=== PATIENT | female | born 1995 | race Caucasian/White ===

== ENCOUNTER → 2024-03-10 08:45 | Outpatient (CLI) | payer BC, SELFPAY ==
[2024-03-10 09:46] LABS: Influenza A - CEPHEID Flu A NEGATIVE (NEGATIVE); Influenza B - CEPHEID Flu B NEGATIVE (NEGATIVE); Respiratory Syncytial Virus Negative (Negative)
[2024-03-10 09:47] LABS: COVID-19 CEPHEID 4-PLEX PCR POSITIVE (Negative)
== END ==
PROVIDERS: Visit Provider Nurse Practitioner Family
DX: J02.9 Acute pharyngitis, unspecified (principal); R05.1 Acute cough
CPT/HCPCS: 0241U; 87070

== ENCOUNTER 2025-01-11 08:23 | Emergency (ER) | payer OTHER, SELFPAY ==
[2025-01-11 08:31] VITALS: BP 145/82; PULSE 92; RESP 18; TEMP 36.2; O2SAT 100; BMI 28.5
--- NOTE | 2025-01-11 09:14 | ED_ITS ---
HPI - Extremity Problem General Chief complaint: Extremity Problem,Nontraumatic Stated complaint: bilateral arm weakness Time Seen by Provider: 01/11/25 08:41 Source: patient, RN notes reviewed and old records reviewed Mode of arrival: Ambulatory Limitations: no limitations History of Present Illness HPI Narrative: 29-year-old female history of migraines and hypothyroidism presents with complaint of bilateral arm pain in sensation of weakness overnight. Patient states symptoms woke her up from sleep. She had kind of burning pain down both arms from the shoulders down. She only took some acetaminophen, ibuprofen as well as Benadryl. She states that was helpful. States pain is still present but much better. She noted she was having a little bit of difficulty with her right hand was painful to lift up above her shoulders. Also had some difficulty opening the pill bottles. She states her strength seems to has improved since then with the improvement of her discomfort. She denies any numbness but did have some paresthesias sensation. Patient states she has not had similar symptoms in the past. No trauma or other injuries. She denies any prior surgeries. Has allergies to penicillin and hydrocodone. She recently moved from [place] so has not established with a primary care. Had gone to the walk-in clinic and was referred to the ED. Related Data Previous Rx's Medication Instructions Recorded prednisone 10 mg tablets in a dose See Rx Instructions PO .COMPLEX 01/11/25 pack #21 ea tramadol 50 mg tablet 50 mg PO Q6H PRN pain #5 tabs 01/11/25 Allergies Allergy/AdvReac Type Severity Reaction Status Date / Time Penicillins Allergy Unknown Unverified 01/11/25 08:37 hydrocodone AdvReac Mild Hallucinati Verified 01/11/25 08:37 ng Review of Systems Review of Systems ROS Unobtainable: All systems reviewed & are unremarkable except as noted in HPI and below Patient History Social History Smoking Status: Never smoker Smoking Status: Never smoker Exam Narrative Exam Narrative: GEN: well nourished, well appearing female, alert and oriented x 3, patient appears to be in mild distress. HEENT: Atraumatic, pupils are equal round reactive to light, extraocular movements are intact, nares are clear, TMs are clear with no fluid, there is no conjunctival pallor. Throat is clear without any exudates, erythema, tonsillar enlargement or uvular deviation, negative Spurling's HEART: Regular rate and rhythm without murmur, clicks, rubs. 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 Initial Vital Signs Initial Vital Signs: Vital Signs Temperature 97.2 F L 01/11/25 08:31 Pulse Rate 92 H 01/11/25 08:31 Respiratory Rate 18 01/11/25 08:31 Blood Pressure 145/82 H 01/11/25 08:31 Pulse Oximetry 100 01/11/25 08:31 Oxygen Delivery Method Room Air 01/11/25 08:31 Course Vital Signs Vital signs: Vital Signs - 8 hr 01/11/25 08:31 Temperature 97.2 F L Pulse Rate 92 H Respiratory Rate 18 Blood Pressure 145/82 H Pulse Oximetry 100 Oxygen Delivery Method Room Air MDM - Extremity (Nontraumatic) MDM Narrative Medical decision making narrative: 29-year-old female who notes bilateral upper extremity pain, some tingling and some weakness overnight which has not improved. Patient did take medication for pain earlier this morning including acetaminophen and ibuprofen and Benadryl. She states the weakness seems to have resolved as well. Suspect patient is having a bit of a radiculopathy probably some nerve impingement at the cervical region based on her bilateral symptoms. Discussed possible workup and imaging but patient feels comfortable following up with primary care as her symptoms have improved at this time. We will give a short course of oral steroid and pain medication as symptoms may return. Discussed return precautions. Discharge Plan Departure Patient Disposition: Home Clinical Impression: Radiculopathy Instructions: Cervical Radiculopathy Activity Restrictions/Additional Instructions: Your symptoms today seem most consistent with a cervical radiculopathy. Please follow up with primary care for recheck and further evaluation. There is a card included that has contact information for local primary care is taking new patients. Take oral steroids until completed. Continue with the acetaminophen up to a 1000 mg every 6 hours and/or ibuprofen up to 600 mg every 6 hours as needed for pain. If needed there is a short course of narcotic pain medication included. Can take 1 tablet every 6 hours as needed. This medication can be taken with the acetaminophen and ibuprofen. This medication can make you sleepy do not drive, perform hazardous activities or john e any major decisions while taking it. This medication will make you constipated please take a stool softener once to twice daily until stools are soft and regular. Prescription sent to [facility] in [place]. Please return if you are having rapidly worsening symptoms, new weakness, inability to lift or move your arm, loss of sensation, loss of bowel or bladder control, fevers or other new or concerning changes. Prescriptions: New prednisone 10 mg tablets,dose pack See Rx Instructions .ROUTE .COMPLEX Qty: 21 0RF Rx Instructions: 6 tabs p.o. x1 day, then 5 tabs p.o. x1 day, then 4 tablets p.o. x1 day, then 3 tabs p.o. x1 day, then 2 tabs p.o. x1 day, then 1 tab p.o. x1 day tramadol 50 mg tablet 50 mg PO Q6H PRN (Reason: pain) Qty: 5 0RF Stand Alone Forms: Patient Portal/API/Survey
== END 2025-01-11 10:43 | disposition home or self-care (01) ==
PROVIDERS: Emergency Provider Emergency Medicine
DX: M54.12 Radiculopathy, cervical region (principal)
CPT/HCPCS: 99281

== ENCOUNTER → 2025-01-13 17:05 | Outpatient (CLI) | payer OTHER, SELFPAY ==
--- NOTE | 2025-01-13 17:07 | DI.RAD.S_ITS ---
PROCEDURE: XR CERVICAL SPINE 2V OR 3V INDICATIONS: UE weakness, pain TECHNIQUE: Three views (s) of the cervical spine were acquired. COMPARISON: None. FINDINGS: Cervical spine curvature and alignment: Normal. Bones: There are no osseous abnormalities. Disc spaces: Normal in height without significant degeneration. Soft tissues: No soft tissue swelling, calcification or mass. IMPRESSION: Normal cervical spine. Dictated by: Saad Waddell M.D. on 01/14/2025 at 12:42 Approved by: Saad Waddell M.D. on 01/14/2025 at 12:42
== END ==
PROVIDERS: PCP Family Medicine; Referring Provider Family Medicine; Visit Provider Family Medicine
DX: E03.9 Hypothyroidism, unspecified (principal); G43.909 Migraine, unspecified, not intractable, without status migrainosus; F32.9 Major depressive disorder, single episode, unspecified; M54.10 Radiculopathy, site unspecified; R29.898 Other symptoms and signs involving the musculoskeletal system
CPT/HCPCS: 72040

== ENCOUNTER → 2025-02-24 06:56 | Outpatient (CLI) | payer OTHER, SELFPAY ==
--- NOTE | 2025-02-24 06:57 | DI.ECHO.S_ITS ---
[facility] +---------+ [facility] : : [address] : : [place] : : [id number] : : Phone: [phone] Echocardiogram Report + + :Name: KENNY PERES Study Date: 02/24/2025 Height: 72 in : :[facility] ReadingLocation: Weight: 200 lb : : Gender: Female BSA: 2.1 m2 : :: 1995 Age: 29 yrs BP: 128/70 mmHg: :Reason For Study: MURMUR : :Ordering Physician: LARRY, : :NORBERTO [place] Performed By: Felipe Marc : :Referring: NORBERTO JUAREZ : + + Interpretation Summary 1. The left ventricular contractility is normal. Estimated ejection fraction is around 55% with no segmental wall motion abnormalities. No LVH. No diastolic dysfunction. 2. The right ventricle contractility is normal. 3. All cardiac chambers are of normal size. 4. No significant valvular abnormalities. 5. No obvious intracardiac shunts. 6. No obvious intrinsic masses or thrombi. 7. No hemodynamically significant pericardial effusion. 8. Low right-sided filling pressures. Conclusion: Normal biventricular function with no significant valvular nor structural abnormalities. Procedure: A two-dimensional transthoracic echocardiogram with color flow and Doppler was performed. The study quality was technically good. There is no prior echocardiogram noted for this patient. The patient was in normal sinus rhythm during the exam. Left Ventricle: The left ventricle is normal in size. There is normal left ventricular wall thickness. There is no ventricular septal defect visualized. The ejection fraction is estimated to be 55-60%. There are no focal wall motion abnormalities. Diastolic parameters suggest probable normal left ventricular diastolic function and normal filling pressures. Right Ventricle: The right ventricle is normal in size and function. Atria: The left atrial size is normal. Right atrial size is normal. There is no Doppler evidence for an interatrial shunt. Mitral Valve: The mitral valve leaflets appear normal. There is no evidence of stenosis, fluttering, or prolapse. There is trace mitral regurgitation. Aortic Valve: The aortic valve is trileaflet. The aortic valve opens well. No aortic regurgitation is present. Tricuspid Valve: The tricuspid valve leaflets are thin and pliable. No tricuspid regurgitation. Pulmonic Valve: The pulmonic valve is not well seen, but is grossly normal. There is no pulmonic valvular regurgitation. Great Vessels: The aortic root is normal size. The dimensions of the ascending aorta are normal. The pulmonary artery is normal size. The IVC is of normal diameter and collapses greater than 50% with a sniff. This suggests a low right atrial pressure of 3 mm Hg. Pericardium/ Pleura There is no pericardial effusion. There is no pleural effusion. MMode/2D Measurements & Calculations LVIDd: 5.1 cm LVOT diam: 2.1 cm LVIDs: 3.3 cm Ao root diam: 2.7 cm FS: 35.0 % asc Aorta Diam: 2.7 cm EPSS: 0.46 cm Ao Arch Diam (Prox Trans): 1.4 cm IVSd: 0.77 cm LVPWd: 0.78 cm LV barrios. diameter/BSA (cm/m^2): 2.4 LV sys. diameter/BSA (cm/m^2): 1.5 LA A2 area: 19.5 cm2 RA long axis: 5.2 cm LA A4 area: 16.5 cm2 RA area: 16.3 cm2 LA length (vol): 5.3 cm RA vol: 43.7 ml LA vol: 51.7 ml RA : 20.5 ml/m2 LA vol index: 24.3 ml/m2 IVC diam: 1.8 cm RVD1 (basal): 3.2 cm RVD2 (mid): 2.6 cm TAPSE: 3.0 cm Doppler Measurements & Calculations Ao V2 max: 165.8 cm/sec LVOT Max Joshua: 124.9 cm/sec Ao V2 mean: 126.6 cm/sec LV V1 max P.2 mmHg Ao max P.0 mmHg LV V1 VTI: 28.5 cm Ao mean P.9 mmHg JOSIE(I,D): 2.6 cm2 Ao V2 VTI: 37.1 cm JOSIE(V,D): 2.5 cm2 sev ratio: 0.77 JOSIE indexed to BSA (cm^2/m^2): 1.2 MV E max joshua: 100.7 cm/sec PA V2 max: 125.2 cm/sec MV A max joshua: 54.1 cm/sec PA V2 mean: 91.4 cm/sec MV E/A: 1.9 PA mean P.6 mmHg Med Peak E' Joshua: 13.4 cm/sec PA pr(Accel): 25.9 mmHg E/E' med: 7.5 Lat Peak E' Joshua: 12.5 cm/sec E/E' lat: 8.1 E/e' average: 7.8 MV dec time: 0.18 sec SV(LVOT): 94.7 ml Reading Physician:KRISHAN
[2025-02-24 15:24] LABS: Urine N gonorrhoeae NOT DETECTED
[2025-02-24 15:26] LABS: Hep C Virus Ab w/Reflex Quant NEGATIVE s/c (NEGATIVE)
[2025-02-24 15:27] LABS: HIV 1 & 2 Ab/Ag 4th Gen Combo NEGATIVE (NEGATIVE)
[2025-02-24 15:28] LABS: Urine Chlamydia NOT DETECTED
[2025-02-25 05:41] LABS: RPR Screen Non Reactive (Non Reactive)
== END ==
PROVIDERS: PCP Family Medicine; Referring Provider Family Medicine; Visit Provider Family Medicine
DX: R01.1 Cardiac murmur, unspecified (principal); Z72.51 High risk heterosexual behavior
CPT/HCPCS: 36415; 86592; 86803; 87389; 87491; 87591; 93306

== ENCOUNTER → 2025-03-05 08:26 | Outpatient (CLI) | payer OTHER, SELFPAY ==
--- NOTE | 2025-03-05 08:27 | DI.RAD.S_ITS ---
PROCEDURE: XR LUMBAR SPINE 2-3V INDICATIONS: lumbago with some minor radiculopathy TECHNIQUE: 3 views of the lumbar spine were acquired. COMPARISON: None. FINDINGS: Bones: 5 [id number] vertebrae are present. There is normal bony alignment. No vertebral body compression fractures. No suspicious bony lesions. Soft tissues: Overlying bowel gas pattern is normal. No suspicious soft tissue calcifications. IMPRESSION: No acute bony abnormality. Approved by: Rj Maza M.D. on 03/05/2025 at 8:18
== END ==
PROVIDERS: PCP Family Medicine; Referring Provider Family Medicine; Visit Provider Chiropractor
DX: M54.50 Low back pain, unspecified (principal)
CPT/HCPCS: 72100

== ENCOUNTER 2025-03-06 18:16 | Emergency (ER) | payer OTHER, SELFPAY ==
[2025-03-06 18:55] VITALS: BP 150/72; PULSE 93; RESP 18; TEMP 37; O2SAT 98; BMI 28.5
[2025-03-06 21:39] VITALS: PULSE 51; O2SAT 90
[2025-03-06 21:45] VITALS: BP 128/69; PULSE 77; RESP 15; O2SAT 98
[2025-03-06] MEDS: HYDROMORPHONE 0.5 MG INJ IV (22:20)
[2025-03-06] MEDS: ONDANSETRON 4 MG/2 ML INJ IV (22:20)
--- NOTE | 2025-03-06 22:27 | ED.BACK ---
HPI - Back Pain/Injury General Chief Complaint: Back Pain/Injury Stated Complaint: lower back pain Time Seen by Provider: 03/06/25 21:58 Source: patient History of Present Illness HPI Narrative: 29-year-old female with [id number]-right low back pain for the last 3 days, no injury trauma new activities recalled. She had been taking [id number] Tylenol and Motrin. She went to the walk-in clinic yesterday, x-rays of the low back were performed, she is not sure of the other assessments. She was discharged on cyclobenzaprine, still taking Tylenol and Motrin. Pain is persisting. She does not have any vaginal bleeding or vaginal discharge. She does not have history of kidney stones. No known ovarian cysts. No previous abdominopelvic surgeries. No painful or frequent urination. No numbness or tingling to legs. No weakness to the legs. No prior back interventions or injuries or procedures. No fevers chills. No recent cough shortness of breath. No upper back flank area discomfort. No thoracic scapular area discomfort. MD Complaint: back pain Related Data Home Medications ?Medication ?Instructions ?Recorded ?Confirmed bupropion HCl 300 mg 24 hr tablet, 300 mg PO QAM 01/13/25 03/05/25 extended release levonorgestrel 0.15 mg-ethinyl 1 tab PO DAILY 01/13/25 03/05/25 estradiol 30 mcg tablets,3 mos pack(91) (Tien) levothyroxine 75 mcg tablet 75 mcg PO DAILY 01/13/25 03/05/25 meloxicam 15 mg tablet 15 mg PO DAILY 01/13/25 03/05/25 ondansetron 4 mg disintegrating 4 mg PO Q6H 01/13/25 03/05/25 tablet sumatriptan succinate 50 mg tablet See Rx Instructions PO .COMPLEX 01/13/25 03/05/25 Previous Rx's ?Medication ?Instructions ?Recorded cyclobenzaprine 10 mg tablet 10 mg PO TID PRN muscle spasm 7 03/05/25 days #21 tabs ciprofloxacin HCl 500 mg tablet 500 mg PO BID #20 tabs 03/07/25 (Cipro) Allergies Allergy/AdvReac Type Severity Reaction Status Date / Time Penicillins Allergy Unknown Verified 03/06/25 18:56 pa AdvReac Severe Swelling Verified 03/06/25 18:56 of Lip/Tongue/Throat tramadol AdvReac Severe Hallucinati Verified 03/06/25 18:56 ng hydrocodone AdvReac Mild Hallucinati Verified 03/06/25 18:56 ng Patient History Surgical History (Updated 01/13/25 @ 16:38 by Gala Martin MD) History of tonsillectomy History of oral surgery Social History Smoking Status: Never smoker Smoking Status: Never smoker Exam Narrative Exam Narrative: GENERAL: Well-developed patient, in mild distress. HEAD: Atraumatic. Normocephalic. EYES: Pupils equal round and reactive. Extraocular motions intact. No scleral icterus. No injection or drainage. ENT: Nose without bleeding, purulent drainage. Throat without erythema, tonsillar hypertrophy or exudate. Airway patent. NECK: Trachea midline. Non tender CARDIOVASCULAR: Regular rate and rhythm without murmurs, gallops, or rubs. RESPIRATORY: Clear to auscultation. Breath sounds equal bilaterally. No wheezes, rales, or rhonchi. GASTROINTESTINAL: Abdomen soft, non-tender, nondistended. EXTREMITIES: No edema or joint tenderness. BACK: Nontender without deformity or crepitance. No flank tenderness. NEURO: AOx3. Motor functions grossly nonfocal. SKIN: No rash or erythema of visible areas Initial Vital Signs Initial Vital Signs: Vital Signs Temperature 98.6 F 03/06/25 18:55 Pulse Rate 93 H 03/06/25 18:55 Respiratory Rate 18 03/06/25 18:55 Blood Pressure 150/72 H 03/06/25 18:55 Pulse Oximetry 98 03/06/25 18:55 Oxygen Delivery Method Room Air 03/06/25 18:55 Course Orders Ordered: ED Orders 03/06/25 22:35 CBC Auto Diff [Complete Blood Count AUTO DIFF] Stat CMP [Comprehensive Metabolic Panel] Stat HCG Quantitative /Beta subunit Stat Lipase Stat 03/06/25 23:52 CT abdomen pelvis w con Stat 03/07/25 00:16 Urine Culture Stat Urine Microscopic Stat Discontinued Medications Hydrocodone Bitart/Acetaminophen (Hydrocodone/Acet 5/325 Prepack) 1 bottle MISC DIRECTED ONE Stop: 03/07/25 01:41 Last Admin: 03/07/25 02:27 Dose: Not Given Documented By: FREIDA Ciprofloxacin (Ciprofloxacin 250 Mg Tablet) 500 mg PO NOW ONE Stop: 03/07/25 01:16 Last Admin: 03/07/25 01:24 Dose: 500 mg Documented By: FREIDA Diphenhydramine HCl (Diphenhydramine 50 Mg/Ml Vial) 50 mg IV NOW ONE Stop: 03/06/25 22:49 Last Admin: 03/06/25 22:52 Dose: 50 mg Documented By: FREIDA Hydromorphone HCl (Hydromorphone 0.5 Mg Inj) 0.5 mg IV NOW ONE Stop: 03/06/25 22:15 Last Admin: 03/06/25 22:20 Dose: 0.5 mg Documented By: FREIDA Hydromorphone HCl (Hydromorphone 0.5 Mg Inj) 0.5 mg IV NOW ONE Stop: 03/07/25 01:28 Last Admin: 03/07/25 01:31 Dose: 0.5 mg Documented By: FREIDA Ketorolac Tromethamine (Ketorolac 30 Mg/Ml Vial) 30 mg IM NOW ONE Stop: 03/06/25 22:08 Last Admin: 03/06/25 23:43 Dose: Not Given Documented By: FREIDA Ondansetron HCl (Ondansetron 4 Mg/2 Ml Inj) 4 mg IV NOW ONE Stop: 03/06/25 22:15 Last Admin: 03/06/25 22:20 Dose: 4 mg Documented By: FREIDA Oxycodone/Acetaminophen (Oxycodone/Apap 5/325 Prepack) 1 bottle MISC DIRECTED ONE Stop: 03/07/25 02:41 Last Admin: 03/07/25 02:45 Dose: 1 bottle Documented By: FREIDA Vital Signs Vital signs: Vital Signs - 8 hr 03/06/25 21:39 03/06/25 21:45 03/06/25 21:45 Pulse Rate 51 L 77 Respiratory Rate 15 Blood Pressure 128/69 Pulse Oximetry 90 L 98 Oxygen Delivery Method 03/06/25 22:35 03/06/25 22:35 03/06/25 23:00 Pulse Rate 98 H Respiratory Rate 18 Blood Pressure 137/82 143/87 H Pulse Oximetry 97 Oxygen Delivery Method 03/06/25 23:30 03/06/25 23:30 03/07/25 00:00 Pulse Rate 96 H Respiratory Rate 18 Blood Pressure 147/71 H 134/66 Pulse Oximetry 97 Oxygen Delivery Method 03/07/25 00:00 03/07/25 01:32 03/07/25 01:36 Pulse Rate 82 80 Respiratory Rate 20 Blood Pressure 123/66 Pulse Oximetry 97 95 Oxygen Delivery Method 03/07/25 01:36 03/07/25 02:00 03/07/25 02:00 Pulse Rate 93 H 84 Respiratory Rate 18 19 Blood Pressure 129/68 Pulse Oximetry 96 97 Oxygen Delivery Method Room Air MDM - Back Pain/Injury Lab Data Lab results narrative: White blood cell count 6200, hemoglobin 13.5, platelets adequate. Basic metabolic panel unremarkable. Liver functions normal. HCG negative. Urinalysis with bacteriuria inflammatory cells, urine culture requested. 03/06/25 22:35 03/06/25 22:35 Labs: Lab Results 03/06/25 03/07/25 Range/Units 22:35 00:16 WBC 6.2 (4.5-11.0) X10^3/uL RBC 4.56 (4.0-5.2) X10^6/uL Hgb 13.5 (12.0-16.0) g/dL Hct 40.4 (36-46) % MCV 88.6 (80-100) fL MCH 29.6 (26-34) PG MCHC 33.4 (30-36) % RDW 12.5 (11.6-14.8) % Plt Count 250 (150-400) X10^3/uL Neut % (Auto) 35.1 L (50-75) % Lymph % (Auto) 48.8 H (25-40) % [place] % (Auto) 9.2 (3-14) % Eos % (Auto) 5.7 H (2-4) % Baso % (Auto) 1.2 (0-2) % Neut # (Auto) 2200 (1009-0715) /uL Lymph # (Auto) 3000 (6303-4165) /uL [place] # (Auto) 600 (0-900) /uL Eos # (Auto) 400 (0-450) /uL Baso # (Auto) 100 (0-100) /uL Sodium 138 (137-145) mmol/L Potassium 4.1 (3.4-5.1) mmol/L Chloride 104 (98-107) mmol/L Carbon Dioxide 26 (22-32) mmol/L BUN 9 (7-17) mg/dL Creatinine 0.95 (0.52-1.04) mg/dL Estimated GFR > 60 (>60) mL/min BUN/Creatinine Ratio 9.5 (6-22) Glucose 94 (70-99) mg/dL Calcium 8.8 (8.4-10.2) mg/dL Total Bilirubin 0.3 (0.2-1.3) mg/dL AST 20 (14-36) IU/L ALT 14 (<35) IU/L Alkaline Phosphatase 84 (38-126) U/L Total Protein 7.1 (6.3-8.2) g/dL Albumin 4.1 (3.5-5.0) g/dL Globulin 3.0 (1.7-4.1) g/dL Albumin/Globulin Ratio 1.4 (1.0-2.8) Lipase 88 (23-300) U/L HCG, Quant < 2.39 mIU/mL Urine RBC 0-1/hpf (0-5/HPF) Urine WBC 5-10/hpf H (0-5/HPF) Ur Squamous Epith Cells 0-1 /hpf (0-5/HPF) Urine Bacteria Moderate (10-30) H (None) Ur Culture Indicated? Specimen cultured Vol Urine Centrifuged 10ml (spun) Urine Dip Bedside Urine Glucose Negative Bedside Urine Bilirubin - Negative Bedside Urine Ketone - Negative Urine Specific Reading 1.010 Bedside Urine Occult Blood + Bedside Urine pH 6.0 Bedside Urine Protein - Negative Bedside Urine Urobilinogen - Negative Bedside Urine Nitrite - Negative Bedside Urine Leukocytes +++ [address] scan - abdomen/pelvis: Radiologist's Impression: [address] [address] [address] Scan Report Signed Patient: Tomasa Narayan MR#: [id number] : 1995 Acct:[id number] Age/Sex: 29 / F Date of Service: 03/06/25 Loc: ED Accession Number: [id number] Procedure: CT abdomen pelvis w con Ordering Provider: Oliverio De Los Santos MD PROCEDURE: CT ABDOMEN PELVIS W CON INDICATIONS: Low back pain L>R, no back tend, HCG neg TECHNIQUE: After the administration of intravenous contrast, axial sections acquired from the lung bases to the pubic symphysis. Coronal and sagittal reformats were performed. For radiation dose reduction, the following was used: automated exposure control, adjustment of mA and/or kV according to patient size. COMPARISON: None. FINDINGS: Image quality: Diagnostic. Lower Chest: No significant findings. ABDOMEN: Liver: No solid mass. Gallbladder: No wall thickening or calcified stones. Biliary ducts: No biliary dilation. Pancreas: No ductal dilation. Spleen: Size is within normal limits. Adrenal Glands: No adrenal nodules. Kidneys and Ureters: Symmetric enhancement. No nephrolithiasis or hydronephrosis. No visible mass or cyst requiring follow up. No hydroureter. Stomach and Bowel: Decompressed stomach and most small bowel loops. Normal appendix. Normal quantity of colonic stool. No suspicious colon wall thickening or inflammation. Peritoneum: No abnormal intraperitoneal fluid. No free air. Ventral Wall: No significant ventral hernia. Abdominal Nodes: No retroperitoneal or mesenteric adenopathy by size criteria. Vessels: The abdominal aorta, IVC, and portal vein are of normal caliber. PELVIS: Pelvic Organs: Uterus and ovaries are normal. Bladder: Diffusely decompressed urinary bladder without stones. Pelvic Nodes: No enlarged lymph nodes. Miscellaneous: No inguinal hernias are seen. Bones: No aggressive osseous abnormality. IMPRESSION: Normal CT abdomen pelvis. Dictated by: Denise Thomas M.D. on 03/07/2025 at 1:22 Approved by: Denise Thomas M.D. on 03/07/2025 at 1:26 MDM Narrative Medical decision making narrative: 39-year-old female with right lower back pain without tenderness, unclear etiology, screening x-ray outpatient yesterday apparently negative. HCG negative. White blood cell count not elevated. CT abdomen and pelvis ordered. DDx consider musculoskeletal lumbar strain, referred pain from abdominopelvic process, ureteral stone, UTI, other. Lab data: White blood cell count 6200, hemoglobin 13.5, platelets adequate. Basic metabolic panel unremarkable. Liver functions normal. HCG negative. Urinalysis with bacteriuria inflammatory cells, urine culture requested. Urinalysis eventually was obtained, shows bacteriuria, and some inflammatory cells, urine culture triggered by protocol. History of penicillin allergy. Oral Cipro dose. CT abdomen pelvis, no acute changes. See radiology report. Back pain med any related to urinary tract infection, versus musculoskeletal versus other. Given oral ciprofloxacin antibiotic. Further prescription ciprofloxacin sent to her pharmacy. Home pack pain medicines. Discharged home with family. Discharge Plan Departure Patient Disposition: Home Clinical Impression: Low back pain, Urinary tract infection Instructions: DI for Low Back Pain, DI for Urinary Tract Infection (UTI) Activity Restrictions/Additional Instructions: Low back pain, no direct tenderness on palpation to the spinal or paraspinal musculature. Unclear if your back pain really is musculoskeletal in nature. CT abdomen and pelvis imaging unrevealing for any definite referred pain. Urinalysis however was positive for infection. It is possible urine infection might be causing some referred pain to the back. Trial of antibiotics, 1st antibiotic given in the emergency department, further antibiotic prescription sent to your pharmacy. Take antibiotics as directed. Take home pack pain medications if needed as directed. Continue your muscle relaxant from recent urgent care visit for now. Recheck symptoms with your regular doctor in the next couple of days. Return to this/nearest emergency department for any change worsening symptoms or any concerns prior. Prescriptions: New ciprofloxacin HCl [Cipro] 500 mg tablet 500 mg PO BID Qty: 20 0RF No Action bupropion HCl 300 mg tablet extended release 24 hr 300 mg PO QAM levothyroxine 75 mcg tablet 75 mcg PO DAILY levonorgestrel-ethinyl estrad [Jolessa] 0.15 mg-30 mcg (91) tablets,dose pack,3 month 1 tab PO DAILY Patient Comments: Active pills only to prevent period. ondansetron 4 mg tablet,disintegrating 4 mg PO Q6H sumatriptan succinate 50 mg tablet See Rx Instructions PO .COMPLEX Rx Instructions: take 1 tab at onset of headache; if no relief may repeat 1 tab after at least 2 hrs; max = 4 tabs/24 hr PO meloxicam 15 mg tablet 15 mg PO DAILY cyclobenzaprine 10 mg tablet 10 mg PO TID PRN (Reason: muscle spasm) 7 Days Qty: 21 0RF Referrals: Gala Martin MD [Primary Care Provider, Family Practice] Stand Alone Forms: Patient Portal/API, Work Release Note
[2025-03-06 22:35] VITALS: BP 137/82; PULSE 98; RESP 18; O2SAT 97
[2025-03-06 22:43] LABS: Add Manual Diff / Slide Review NO; Basophils Absolute Auto 100 /uL (0-100); Basophils Percent Auto 1.2 % (0-2); Eosinophils Absolute Auto 400 /uL (0-450); Eosinophils Percent Auto 5.7 % (2-4); Hematocrit 40.4 % (36-46); Hemoglobin 13.5 g/dL (12.0-16.0); Lymphocytes Absolute Auto 3000 /uL (1100-4500); Lymphocytes Percent Auto 48.8 % (25-40); Mean Corpuscular HGB Conc 33.4 % (30-36); Mean Corpuscular Hemoglobin 29.6 PG (26-34); Mean Corpuscular Volume 88.6 fL (80-100); Monocytes Absolute Auto 600 /uL (0-900); Monocytes Percent Auto 9.2 % (3-14); Neutrophils Absolute Auto 2200 /uL (1500-7000); Neutrophils Percent Auto 35.1 % (50-75); Platelet Count 250 X10^3/uL (150-400); Red Blood Cell Count 4.56 X10^6/uL (4.0-5.2); Red Cell Distribution Width 12.5 % (11.6-14.8); White Blood Cell Count 6.2 X10^3/uL (4.5-11.0)
[2025-03-06] MEDS: diphenhydrAMINE 50 MG/ML VIAL IV (22:52)
[2025-03-06 23:00] VITALS: BP 143/87
[2025-03-06 23:01] LABS: Alanine Aminotransferase 14 IU/L (<35); Albumin 4.1 g/dL (3.5-5.0); Albumin Globulin Ratio 1.4 (1.0-2.8); Alkaline Phosphatase 84 U/L (38-126); Aspartate Aminotransferase 20 IU/L (14-36); BUN Creatinine Ratio 9.5 (6-22); Bilirubin Total 0.3 mg/dL (0.2-1.3); Blood Urea Nitrogen 9 mg/dL (7-17); Calcium 8.8 mg/dL (8.4-10.2); Carbon Dioxide 26 mmol/L (22-32); Chloride 104 mmol/L (98-107); Estimated Glomerular Filt Rate > 60 mL/min (>60); Glucose 94 mg/dL (70-99); HEMOLYSIS < 15 (0-50); Lipase 88 U/L (23-300); Potassium 4.1 mmol/L (3.4-5.1); Sodium 138 mmol/L (137-145); Total Protein 7.1 g/dL (6.3-8.2)
[2025-03-06 23:30] VITALS: BP 147/71; PULSE 96; RESP 18; O2SAT 97
[2025-03-06 23:45] LABS: HCG Quantitative /Beta subunit < 2.39 mIU/mL
--- NOTE | 2025-03-06 23:52 | DI.CT.S_ITS ---
PROCEDURE: CT ABDOMEN PELVIS W CON INDICATIONS: Low back pain L>R, no back tend, HCG neg TECHNIQUE: After the administration of intravenous contrast, axial sections acquired from the lung bases to the pubic symphysis. Coronal and sagittal reformats were performed. For radiation dose reduction, the following was used: automated exposure control, adjustment of mA and/or kV according to patient size. COMPARISON: None. FINDINGS: Image quality: Diagnostic. Lower Chest: No significant findings. ABDOMEN: Liver: No solid mass. Gallbladder: No wall thickening or calcified stones. Biliary ducts: No biliary dilation. Pancreas: No ductal dilation. Spleen: Size is within normal limits. Adrenal Glands: No adrenal nodules. Kidneys and Ureters: Symmetric enhancement. No nephrolithiasis or hydronephrosis. No visible mass or cyst requiring follow up. No hydroureter. Stomach and Bowel: Decompressed stomach and most small bowel loops. Normal appendix. Normal quantity of colonic stool. No suspicious colon wall thickening or inflammation. Peritoneum: No abnormal intraperitoneal fluid. No free air. Ventral Wall: No significant ventral hernia. Abdominal Nodes: No retroperitoneal or mesenteric adenopathy by size criteria. Vessels: The abdominal aorta, IVC, and portal vein are of normal caliber. PELVIS: Pelvic Organs: Uterus and ovaries are normal. Bladder: Diffusely decompressed urinary bladder without stones. Pelvic Nodes: No enlarged lymph nodes. Miscellaneous: No inguinal hernias are seen. Bones: No aggressive osseous abnormality. IMPRESSION: Normal CT abdomen pelvis. Dictated by: Denise Thomas M.D. on 03/07/2025 at 1:22 Approved by: Denise Thomas M.D. on 03/07/2025 at 1:26
[2025-03-07] VITALS: BP 134/66; PULSE 82; RESP 20; O2SAT 97
[2025-03-07 01:01] LABS: Bacteria Urine Moderate (10-30); Culture Indicated Urine Specimen Cultured; RBC Urine 0-1/HPF (0-5/HPF); Squamous Epithelial Cell Urine 0-1 /HPF (0-5/HPF); Urine Volume 10mL (spun); WBC Urine 5-10/HPF (0-5/HPF)
[2025-03-07] MEDS: CIPROFLOXACIN 250 MG TABLET 500 MG PO (01:24)
[2025-03-07] MEDS: HYDROMORPHONE 0.5 MG INJ IV (01:31)
[2025-03-07 01:32] VITALS: PULSE 80; O2SAT 95
[2025-03-07 01:36] VITALS: BP 123/66; PULSE 93; RESP 18; O2SAT 96
[2025-03-07 02:00] VITALS: BP 129/68; PULSE 84; RESP 19; O2SAT 97
[2025-03-07] MEDS: OXYCODONE/APAP 5/325 PREPACK 1 BOTTLE MISC (02:45)
== END 2025-03-07 02:58 | disposition home or self-care (01) ==
PROVIDERS: Emergency Provider Emergency Medicine; PCP Family Medicine
DX: M54.50 Low back pain, unspecified (principal); N39.0 Urinary tract infection, site not specified
CPT/HCPCS: 74177; 80053; 81003; 81015; 83690; 84702; 85025; 87086; 96374; 96375; 96376; 99284; J1171; J1200; J2405; Q9967

== ENCOUNTER → 2025-03-18 07:42 | Outpatient (CLI) | payer OTHER, SELFPAY ==
--- NOTE | 2025-03-18 07:44 | DI.MRI.S_ITS ---
PROCEDURE: MR LUMBAR SPINE WO CON INDICATIONS: Lower extremity numbness and low back pain TECHNIQUE: Noncontrast sagittal T1 spin echo and T2 fast echo, sagittal STIR, and T2 fast spin echo through the lumbar spine. In cases with scoliosis, additional coronal T2 fast spin echo may be performed. COMPARISON: [facility], CT, CT ABDOMEN PELVIS W CON, 03/07/2025, 0:10. [facility], CR, XR LUMBAR SPINE 2-3V, 03/05/2025, 8:26. FINDINGS: Image quality: Excellent except for mild patient motion during sagittal T2 acquisition. Repeat imaging through that sequence was performed.. Alignment and Curvature: There is normal bony alignment. Bone Marrow: Marrow is of normal overall signal. No acute vertebral body compression fractures. Spinal Cord: Conus medullaris terminates at the L1 level. Visualized cord demonstrates normal signal and size. Paraspinous Soft Tissues: No paravertebral masses. T12-L1: Normal appearance. L1-L2: Normal appearance. L2-L3: Normal appearance. L3-L4: Normal appearance. L4-L5: Mild degenerative disc disease with slight disc desiccation but no significant disc height reduction. There is a mild posterior transverse broad-based disc bulge at this level without visualized associated significant spinal stenosis or focal nerve root impingement. Minimal facet degeneration present bilaterally without associated focal nerve root impingement.. L5-S1: Zaeb-ha-ssumubzv degenerative disc disease with disc desiccation and mild disc height reduction. There is a posterior broad-based transverse disc bulge and on sagittal imaging at the midline there appears to be a small superior annular tear best seen on sagittal T2 imaging series 6, image 10, with the disc protruding upwards to a slight degree but not distorting the spinal canal. No significant focal impingement on nerve roots at the neural foramen bilaterally. IMPRESSION: Overall no spinal stenosis is found. There is posd-zy-[id number] degenerative disc disease at L4-5 and L5-S1 as discussed. This appears slightly more prominent at L5-S1 but again no associated spinal stenosis or nerve root focal impingement is found. Dictated by: Chaim Roberts M.D. on 03/18/2025 at 13:08 Approved by: Chaim Roberts M.D. on 03/18/2025 at 13:16
== END ==
LOC: MRI 07:43
PROVIDERS: PCP Family Medicine; Referring Provider Family Medicine; Visit Provider Family Medicine
DX: M51.360 Other intervertebral disc degeneration, lumbar region with discogenic back pain only (principal); M51.370 Other intervertebral disc degeneration, lumbosacral region with discogenic back pain only; R20.0 Anesthesia of skin
CPT/HCPCS: 72148

== ENCOUNTER 2025-03-31 23:09 | Emergency (ER) | payer OTHER, SELFPAY ==
[2025-03-31 23:30] VITALS: BP 149/72; PULSE 91; RESP 18; TEMP 36.8; O2SAT 96; BMI 28.5
--- NOTE | 2025-04-01 02:32 | ED.GENADULT ---
HPI - General Adult General Chief complaint: Dental/Oral Stated complaint: rt side face pain going into jaw, headache Time Seen by Provider: 04/01/25 02:06 Source: patient Mode of arrival: Ambulatory History of Present Illness HPI narrative: 29-year-old female has right-sided facial pain, dental infection prescribed clindamycin by area dentist to is planning possible root canal procedure next week. Ndeg-[id number]-dekpzfz pain medications not controlling symptoms. Previously prescribed meloxicam, unclear if she is still/recently taking. She has some swelling sensation to the right upper face as well. No injury or trauma or new activities. No difficulty with swallowing. Normal phonation. Related Data Home Medications ?Medication ?Instructions ?Recorded ?Confirmed bupropion HCl 300 mg 24 hr tablet, 300 mg PO QAM 01/13/25 03/15/25 extended release levonorgestrel 0.15 mg-ethinyl 1 tab PO DAILY 01/13/25 03/15/25 estradiol 30 mcg tablets,3 mos pack(91) (Briannaa) levothyroxine 75 mcg tablet 75 mcg PO DAILY 01/13/25 03/15/25 meloxicam 15 mg tablet 15 mg PO DAILY 01/13/25 03/15/25 ondansetron 4 mg disintegrating 4 mg PO Q6H 01/13/25 03/15/25 tablet sumatriptan succinate 50 mg tablet See Rx Instructions PO .COMPLEX 01/13/25 03/15/25 Previous Rx's ?Medication ?Instructions ?Recorded ciprofloxacin HCl 500 mg tablet 500 mg PO BID #20 tabs 03/07/25 (Cipro) oxycodone-acetaminophen 5 mg-325 1 tab PO Q6H PRN pain #14 tabs 04/01/25 mg tablet prednisone 20 mg tablet 40 mg (2 x 20 mg) PO DAILY 5 days 04/01/25 #10 tabs Allergies Allergy/AdvReac Type Severity Reaction Status Date / Time Penicillins Allergy Unknown Verified 03/31/25 23:31 pa AdvReac Severe Swelling Verified 03/31/25 23:31 of Lip/Tongue/Throat tramadol AdvReac Severe Hallucinati Verified 03/31/25 23:31 ng hydrocodone AdvReac Mild Hallucinati Verified 03/31/25 23:31 ng Patient History Surgical History (Updated 01/13/25 @ 16:38 by Gala Martin MD) History of tonsillectomy History of oral surgery Social History Smoking Status: Never smoker Smoking Status: Never smoker Exam Narrative Exam Narrative: GENERAL: Well-developed patient, in mild distress. HEAD: Atraumatic. Normocephalic. EYES: Pupils equal round and reactive. Extraocular motions intact. No scleral icterus. No injection or drainage. ENT: Nose without bleeding, purulent drainage. Throat without erythema, tonsillar hypertrophy or exudate. Airway patent. Tenderness right upper premolar molar tooth without grossly obvious chip or lesion. No gross gingival lesions or swelling. Biigital palpation of right buccal cheek without thickening or mass or fluctuance. NECK: Trachea midline. Non tender CARDIOVASCULAR: Regular rate and rhythm without murmurs, gallops, or rubs. RESPIRATORY: Clear to auscultation. Breath sounds equal bilaterally. No wheezes, rales, or rhonchi. GASTROINTESTINAL: Abdomen soft, non-tender, nondistended. EXTREMITIES: No edema or joint tenderness. BACK: Nontender without deformity or crepitance. No flank tenderness. NEURO: AOx3. Motor functions grossly nonfocal. SKIN: No rash or erythema of visible areas Initial Vital Signs Initial Vital Signs: Vital Signs Temperature 98.3 F 03/31/25 23:30 Pulse Rate 91 H 03/31/25 23:30 Respiratory Rate 18 03/31/25 23:30 Blood Pressure 149/72 H 03/31/25 23:30 Pulse Oximetry 96 03/31/25 23:30 Oxygen Delivery Method Room Air 03/31/25 23:30 Course Orders Ordered: Discontinued Medications Oxycodone/Acetaminophen (Oxycodone/Acetaminophen 5/325 Tablet) 1 tab PO NOW ONE Stop: 04/01/25 02:42 Last Admin: 04/01/25 02:47 Dose: 1 tab Documented By: MAKI Oxycodone/Acetaminophen (Oxycodone/Apap 5/325 Prepack) 1 bottle MISC DIRECTED ONE Stop: 04/01/25 02:42 Last Admin: 04/01/25 02:48 Dose: 1 bottle Documented By: MAKI Prednisone (Prednisone 20 Mg Tablet) 60 mg PO NOW ONE Stop: 04/01/25 02:42 Last Admin: 04/01/25 02:48 Dose: 60 mg Documented By: MAKI Vital Signs Vital signs: Vital Signs - 8 hr 03/31/25 23:30 04/01/25 03:01 Temperature 98.3 F Pulse Rate 91 H 92 H Respiratory Rate 18 20 Blood Pressure 149/72 H 169/97 H Pulse Oximetry 96 97 Oxygen Delivery Method Room Air Room Air Medical Decision Making MDM Narrative Medical decision making narrative: 29-year-old female with dental caries on oral clindamycin, some subjective swelling and increasing pain to the right facial region. Oral exam and patient of face without significant swelling or lesions. Oral prednisone for swelling symptoms. Doubt need for CT soft tissue imaging at this time. History of intolerance to tramadol and hydrocodone, has had oxycodone in the past. Dispensed oral oxycodone dose now, oxycodone home pack for discharge, and prescription sent to her pharmacy. Advised to continue taking oral clindamycin. Advised to follow up with dental provider early this week, possible root canal procedure. Return precautions discussed. Discharged home with mother. Discharge Plan Departure Patient Disposition: Home Clinical Impression: Pain due to dental caries Instructions: DI for Dental Pain Activity Restrictions/Additional Instructions: History of penicillin allergy. Right-sided facial pain with sore tooth, taking oral clindamycin from dentist prescription, with significant pain, awaiting possible root canal surgery procedure. Some swelling, though no gross swelling asymmetry of face, nor significant swelling on palpation of your cheek. Painful upper right tooth. Continue taking your clindamycin antibiotic medication from your dentist. Added steroid prednisone, 1st dose in emergency department, further doses prescription sent to your pharmacy. Oxycodone pain medication by mouth in the emergency department, home pack, prescription sent to your pharmacy. Follow up with your dentist Friday or early next week for further plan of care, possible root canal procedure by history. Return earlier to this/nearest emergency department for any change worsening symptoms or any concerns prior. Prescriptions: New oxycodone-acetaminophen 5-325 mg tablet 1 tab PO Q6H PRN (Reason: pain) Qty: 14 0RF prednisone 20 mg tablet 40 mg PO DAILY 5 Days Qty: 10 0RF No Action bupropion HCl 300 mg tablet extended release 24 hr 300 mg PO QAM levothyroxine 75 mcg tablet 75 mcg PO DAILY levonorgestrel-ethinyl estrad [Jolessa] 0.15 mg-30 mcg (91) tablets,dose pack,3 month 1 tab PO DAILY Patient Comments: Active pills only to prevent period. ondansetron 4 mg tablet,disintegrating 4 mg PO Q6H sumatriptan succinate 50 mg tablet See Rx Instructions PO .COMPLEX Rx Instructions: take 1 tab at onset of headache; if no relief may repeat 1 tab after at least 2 hrs; max = 4 tabs/24 hr PO meloxicam 15 mg tablet 15 mg PO DAILY ciprofloxacin HCl [Cipro] 500 mg tablet 500 mg PO BID Qty: 20 0RF Referrals: Gala Martin MD [Primary Care Provider, Family Practice] Stand Alone Forms: Patient Portal/API, Work Release Note
[2025-04-01] MEDS: OXYCODONE/ACETAMINOPHEN 5/325 TABLET 1 TAB PO (02:47)
[2025-04-01] MEDS: OXYCODONE/APAP 5/325 PREPACK 1 BOTTLE MISC (02:48)
[2025-04-01 03:01] VITALS: BP 169/97; PULSE 92; RESP 20; O2SAT 97
== END 2025-04-01 03:24 | disposition home or self-care (01) ==
PROVIDERS: Emergency Provider Emergency Medicine; PCP Family Medicine
DX: K02.9 Dental caries, unspecified (principal); Z88.0 Allergy status to penicillin
CPT/HCPCS: 99283